=== PATIENT | male | born 1995 | race Caucasian/White ===

== ENCOUNTER 2017-03-18 09:07 | Emergency (ER) | payer BC ==
[2017-03-18 09:17] VITALS: BP 125/85
[2017-03-18] MEDS ORDERED: Lidocaine 2% VISCOUS* 15 ML UDC SWISH SPIT ONE (09:41)
--- NOTE | 2017-03-18 09:50 | UC ---
Dental HPI - HPI Summary HPI Summary: 21 y/o male presents to the urgent care c/o left upper back of jaw with gum pain and swelling since yesterday 03/17/2017. Pr reports He was eating popcorn about 3 days ago, and something got stuck in his back molar. Pain is 6/10 specially at touch, with mild fever and chills yesterday. He took Advil 600mg to alleviate symptoms. Pt denies URI, cough, SOB, DAVILA , ear pain, abdominal pain N/V/D or trismus. - History of Current Complaint Chief Complaint: UCDentalProblem Stated Complaint: SOFT TISSUE COMPLAINT Time Seen by Provider: 03/18/17 09:29 Hx Obtained From: Patient Onset/Duration: Gradual Onset, Lasting Days - 2 days, Still Present, Worse Since - yesterday Severity: Moderate Pain Intensity: 6 Pain Scale Used: 0-10 Numeric Aggravating Factor(s): Nothing Alleviating Factor(s): OTC Meds - Allergies/Home Medications Allergies/Adverse Reactions: Allergies Allergy/AdvReac Type Severity Reaction Status Date / Time No Known Allergies Allergy Verified 03/18/17 09:16 Home Medications: Home Medications Lamotrigine [Lamictal] 1 tab PO BEDTIME 03/18/17 [History Confirmed 03/18/17] Lamotrigine [Lamictal] 100 mg PO DAILY 03/18/17 [History Confirmed 03/18/17] PMH/Surg Hx/FS Hx/Imm Hx Previously Healthy: Yes Psychological History: Bipolar Disorder - Surgical History Surgical History: Yes Surgery Procedure, Year, and Place: Right ACL repair - Family History Known Family History: Positive: Hypertension - Social History Occupation: Student Lives: With Family Alcohol Use: Weekly Substance Use Type: None Smoking Status (MU): Current Every Day Smoker - Immunization History Most Recent Influenza Vaccination: Not UTD Vaccination Up to Date: Yes Review of Systems Constitutional: Fever - subjective at home Skin: Negative Eyes: Negative ENT: Dental Pain - with swelling in the left upper back jaw Cardiovascular: Negative Gastrointestinal: Negative Genitourinary: Negative Motor: Negative Neurovascular: Negative Musculoskeletal: Negative Neurological: Negative Psychological: Negative Is Patient Immunocompromised?: No All Other Systems Reviewed And Are Negative: Yes Physical Exam Triage Information Reviewed: Yes Vital Signs: Initial Vital Signs Temp 97.3 F 03/18/17 09:12 Pulse 110 03/18/17 09:12 Resp 16 03/18/17 09:12 BP 125/85 03/18/17 09:12 Pulse Ox 100 03/18/17 09:12 - Additional Comments General: Well-Appearing, weel nourinshed mael, sitting in the examining table w/ o Pain Distress, Vital Signs Reviewed: Yes Eyes: Positive: Conjunctiva Clear - PERRLA, EOMI, ENT: Positive: Normal ENT inspection, Hearing grossly normal, Pharynx normal, TMs normal - B/L exteranl ear canals clear,. Negative: Tonsillar swelling, Tonsillar exudate, Trismus Dental: Positive: Gross Decay/Caries @ - tooth #15, Abscess @ - gingival swelling and erythema, tender to percussion. involves tissue surrounding the teeth #15Cervical Lymphadenopathy - anterior Neck: Positive: Supple Respiratory: Positive: Chest non-tender, Lungs clear, Normal breath sounds, No respiratory distress Cardiovascular: Positive: RRR, No Murmur, Pulses Normal, Brisk Capillary Refill Abdomen Description: Positive: Nontender, No Organomegaly, Soft. Negative: CVA Tenderness (R), CVA Tenderness (L) Bowel Sounds: Positive: Present Musculoskeletal: Positive: Strength Intact, ROM Intact, No Edema Neurological Exam: Normal Psychological Exam: Normal Skin Exam: Normal Dental Complaint Course/Dx - Course Course Of Treatment: 21 y/o male presents to the urgent care c/o left upper back of jaw with gum pain and swelling since yesterday 03/17/2017. Pr reports He was eating popcorn about 3 days ago, and something got stuck in his back molar. Pain is 6/10 specially at touch, with mild fever and chills yesterday. He took Advil 600mg to alleviate symptoms. Pt denies URI, cough, SOB, DAVILA , ear pain, abdominal pain N/V/D or trismus .Hx obtained. Pt with probably a dental abscess aroun molar #15 on examination. Pt given viscous Lidocaine at the clinic to alleviate symptoms. Pt Rx Amoxicillin PO and Naproxen PO for pain. Pt strongly advised to f/u with Dentist as soon as possible further evaluation and treatment. Pt understood and agreed with plan of care. Left the clinic ambulating. - Differential Dx/Diagnosis Differential Diagnosis/Dx: Dental Abscess, Dental Caries, Fractured Tooth, Gingivitis, Odontogenic Pain, Peridontic Disease, Peritonsillar Abcess, Pharyngitis Provider Diagnoses: 1- Dental abscess around molar #15 Discharge - Discharge Plan Condition: Stable Disposition: HOME Prescriptions: Amoxicillin PO (*) [Amoxicillin 875 MG (*)] 875 mg PO BID #20 tab Naproxen [Naproxen 500 mg] 500 mg PO Q8H PRN #30 tab PRN Reason: Pain Patient Education Materials: Dental Abscess (ED) Referrals: [facility] [Outside] - 3 Days Additional Instructions: 1-Please take full course of antibiotic to avoid resistance. 2- Take Naproxen as instructed after meals to alleviate pain and swelling. 3- F/u with your Dentist or Dental List provided as soon as possible for further treatment. 4- If symptoms do not improve or worsen please return to the urgent care or f/u with your PCP for further evaluation and treatment
== END 2017-03-18 09:57 | disposition home or self-care (01) ==
LOC: UCEAST 09:07
DX: K04.7 Periapical abscess without sinus (principal)
CPT/HCPCS: 99212; G0463